=== PATIENT | female | born 1975 | race African-American/Black ===

== ENCOUNTER 2018-11-23 11:55 | Emergency (ER) | payer BC ==
[~2018-11-23] VITALS: Ht 167.6 cm; Wt 82.1 kg
[2018-11-23 12:46] VITALS: BP 137/82
== END 2018-11-23 12:55 | disposition home or self-care (01) ==
LOC: FSED 11:55
DX: S16.1XXA Strain of muscle, fascia and tendon at neck level, initial encounter (principal); F17.200 Nicotine dependence, unspecified, uncomplicated; I10 Essential (primary) hypertension; E78.00 Pure hypercholesterolemia, unspecified; X58.XXXA Exposure to other specified factors, initial encounter; Y92.9 Unspecified place or not applicable
CPT/HCPCS: 99282